=== PATIENT | female | born 1985 | race Caucasian/White ===

== ENCOUNTER 2021-10-24 23:16 | Emergency (ER) | payer BC, SELFPAY ==
[2021-10-24 23:20] VITALS: BP 144/93; PULSE 95; RESP 18; TEMP 36.4; O2SAT 95; BMI 37.6
[2021-10-25 00:19] LABS: Add Urine Culture? Yes; Add Urine Microscopic? YES; Bacteria Urine 4+ /hpf; Bilirubin Urine Neg (Negative); Blood Urine 2+ (Negative); Glucose Urine UA Norm (Normal); Ketones Urine Negative (Negative); Leukocyte Esterase Urine 2+ (Negative); Nitrate Urine Positive (Negative); Protein Urine Neg (Negative); RBC Urine 15-25 /hpf (0-2); Specific Gravity, Urine 1.015 (1.005-1.030); Urine Appearance Hazy (CLEAR); Urine Color Yellow (Yellow); Urobilinogen Urine Norm (Negative); WBC Urine >100 /hpf (0-5); pH Urine 5 (5-7)
[2021-10-25 00:25] VITALS: BP 162/102; PULSE 107; RESP 19; O2SAT 97
--- NOTE | 2021-10-25 00:49 | ED_ITS ---
HPI - Back Pain/Injury General: Chief Complaint: Back Pain/Injury Stated Complaint: Low back pain Time Seen by Provider: 10/25/21 00:41 History of Present Illness: Ms. Matta is a 36-year-old lady with significant past medical history of nephrolithiasis requiring surgical intervention who presents to the emergency department due to abdominal pain. Onset of symptoms was acute at approximately 10 PM. She denies known specific provoking factor. She has left flank pain that radiates to the groin. Intensity symptoms is moderate. Associated nausea but no vomiting. No changes in bowel movements. Feels similar to prior kidney stones. No other specific changes in health, exacerbating, or alleviating factors identified. Pertinent past history: kidney stones Onset (ago): hour(s) Severity: moderate Location: left flank Radiation: groin Exacerbating factors: none Relieving factors: none Associated symptoms: Reports nausea; Deny vomiting Review of Systems General: Reports: 10 or more systems reviewed and unremarkable except in HPI and below GI: Reports: nausea; Denies: vomiting PFSH ED PFSH: Medical History History of kidney stones Surgical History History of lithotripsy Female Reproductive History: Date of last menstrual period: 10/24/21 Physical Exam Const: COMMON NORMALS: alert GENERAL APPEARANCE: cooperative, well developed and in distress (uncomfortable appearing) HENMT: COMMON NORMALS: normocephalic and atraumatic HEAD & SCALP: normocephalic and atraumatic Eye: COMMON NORMALS: conjunctivae normal CONJUNCTIVA: Yes conjunctivae normal SCLERA: sclerae normal Neck/C-Spine: COMMON NORMALS: supple GENERAL: Yes trachea midline Resp: COMMON NORMALS: normal respiratory effort and clear to auscultation bilaterally EFFORT & INSPECTION: Yes able to speak in complete sentences AUSCULTATION: clear to auscultation bilaterally Cardio: COMMON NORMALS: regular rate and regular rhythm RATE: regular rate RHYTHM: regular rhythm GI: COMMON NORMALS: Soft to palpation PALPATION: Yes Soft to palpation and Yes Tenderness to palpation present (GI) : BLADDER/KIDNEY EXAM: Yes CVA tenderness Back/Pelvis: GENERAL BACK: Yes CVA tenderness Extremity: GENERAL: Yes normal exam except as noted and No edema Neuro: COMMON NORMALS: moves all extremities SENSORIUM/ORIENTATION: Yes alert and No Orientation impaired Psych: COMMON NORMALS: mental status grossly normal and Normal thought process present THOUGHT PROCESS: Normal thought process present Course ED course: - Patient was seen and evaluated by me at bedside - Patient placed on cardiac monitors, IV access obtained - Initial evaluation notable for exam as above - Labs personally interpreted by me -Fluids and analgesia given - Labs notable for no leukocytosis, normal hemoglobin. Metabolic panel with mild dehydration. Urinalysis nitrite positive with 2+ blood. -Given history of nephrolithiasis with requirement for surgical intervention as well as evidence of urinary tract infection CT imaging this morning. - Imaging notable for no ureteral compromise. Discussed right lower lobe nodule with patient. - Upon serial reexamination after treatment the patient was improved with treatm ent. Antibiotic dose given - Based on patient history, evaluation, and testing as interpreted the most likely cause of the patient's condition is urinary tract infection. Questionably recently passed kidney stone though no evidence of hydronephrosis or obstructing stone on CT - The results of ED evaluation were discussed with the patient including prescriptions and/or symptomatic cares (if applicable) including appropriate and responsible use, followup plan, and return precautions. The patient verbalized understanding and felt safe for discharge. - Patient discharged in satisfactory condition. Note: Click bubbles or prepopulated grant in note writing are used for assistance with data collection and billing and are inherently more limited than narrative and other text portions of this note. Please use narrative for additional clinical history and defer to narrative/free test for any case of contradictory information. If information appears in only free text or click bubble it should be considered present or absent as reported. Please contact note conventional underwriter for clarifications of clinical information or contradictory information. MDM is a brief summary, contradictory or erroneous seeming information should be clarified and full note should be reviewed. Vital Signs: Vital signs: Vital Signs Temperature 97.5 F L 10/24/21 23:20 Pulse Rate 95 10/25/21 04:20 Respiratory Rate 19 H 10/25/21 00:25 Blood Pressure 121/86 10/25/21 04:20 Pulse Oximetry 96 10/25/21 04:20 Oxygen Delivery Co thod 10/25/21 00:25 MDM - Back Pain/Injury Medical Decision Making 36-year-old lady presenting with sudden onset flank pain associated with nausea. Does have history of nephrolithiasis requiring intervention. Patient found to have urinary tract infection but no evidence of obstructing kidney stone, ? Recently passed stone given clinical history. Patient proved with treatment and satisfactory for outpatient management with treatment of UTI. Medical Records I reviewed the patient's medical records. Labs I reviewed the patient's lab results. : 10/25/21 01:15 10/25/21 01:15 Radiology Impressions Abdomen/Pelvis CT 10/25/21 00:50 IMPRESSION: 1. Right kidney upper pole, mid zone and lower pole 1 mm to 10 mm multiple calculi seen (greater than 15). The overall number and size of calculi is decreased in correlation with the prior CT. Left kidney mid zone and lower pole 1-2 mm calculi, as noted above. No hydronephrosis, ureterectasis or ureteral calculi. 2. 2 x 2 mm noncalcified right lower lobe nodule, as noted above. COMMENTS: Consistent with the [employer] [place] [employer] [employer]'s Incidental Findings Committee white paper (J Am Kaya Radiol 2018): Any incidental renal lesion less than 1 cm or classified as too small to characterize, or any incidental cystic renal lesion characterized as simple-appearing, is likely benign. No follow-up imaging is recommended for these lesions per consensus recommendations based on imaging criteria. Laboratory Results WBC 8.3 10^3/uL (4.0-10.0) 10/25/21 01:15 RBC 4.18 10^6/uL (4.1-5.3) 10/25/21 01:15 Hgb 12.6 g/dL (11.5-15.3) 10/25/21 01:15 Hct 38.2 % (37.0-47.0) 10/25/21 01:15 MCV 91.4 fl (81-99) 10/25/21 01:15 MCH 30.1 pg (28.0-34.0) 10/25/21 01:15 MCHC 33.0 g/dL (30.0-36.0) 10/25/21 01:15 RDW 13.3 % (12.1-15.1) 10/25/21 01:15 Plt Count 372 10^3/cmm (130-400) 10/25/21 01:15 MPV 10.1 fL (7.4-10.4) 10/25/21 01:15 Neut % (Auto) 74.5 % 10/25/21 01:15 Lymph % (Auto) 16.8 % 10/25/21 01:15 [place] % (Auto) 6.8 % 10/25/21 01:15 Eos % (Auto) 1.1 % 10/25/21 01:15 Baso % (Auto) 0.6 % 10/25/21 01:15 Neut # (Auto) 6.18 10^3/uL (1.8-7.7) 10/25/21 01:15 Lymph # (Auto) 1.4 10^3/uL (0.8-4.8) 10/25/21 01:15 [place] # (Auto) 0.6 10^3/uL (0.2-0.9) 10/25/21 01:15 Eos # (Auto) 0.1 10^3/uL (0.0-0.8) 10/25/21 01:15 Baso # (Auto) 0.1 10^3/uL (0.0-0.1) 10/25/21 01:15 Nucleated RBC % (auto) 0 % 10/25/21 01:15 Nucleated RBCs # 0.0 /100WBC 10/25/21 01:15 Sodium 134 mmol/L (136-145) L 10/25/21 01:15 Potassium 3.6 mmol/L (3.5-5.1) 10/25/21 01:15 Chloride 98 mmol/L (98-107) 10/25/21 01:15 Carbon Dioxide 22 mmol/L (22-29) 10/25/21 01:15 Anion Gap 17.6 (5-19) 10/25/21 01:15 BUN 15 mg/dL (6-20) 10/25/21 01:15 Creatinine 0.7 mg/dL (0.5-0.9) 10/25/21 01:15 GFR Calculation 94.2 mL/min (90-130) 10/25/21 01:15 Glucose 173 mg/dL (65-115) H 10/25/21 01:15 Calculated Osmolality 283 mOsm/kg (285-295) L 10/25/21 01:15 Calcium 9.5 mg/dL (8.5-10.5) 10/25/21 01:15 Total Bilirubin 0.3 mg/dL (0.15-1.2) 10/25/21 01:15 AST 20 U/L (0-32) 10/25/21 01:15 ALT 22 U/L (0-33) 10/25/21 01:15 Alkaline Phosphatase 96 IU/L (35-105) 10/25/21 01:15 Total Protein 7.5 g/dL (6.6-8.7) 10/25/21 01:15 Albumin 4.2 g/dL (3.5-5.2) 10/25/21 01:15 Globulin 3.3 g/dL (1.3-4.6) 10/25/21 01:15 Urine Color Yellow (Yellow) 10/24/21 23:50 Urine Appearance Hazy (CLEAR) A 10/24/21 23:50 Urine pH 5 (5-7) 10/24/21 23:50 Ur Specific [place] 1.015 (1.005-1.030) 10/24/21 23:50 Urine Protein Neg (Negative) 10/24/21 23:50 Urine Glucose (UA) Norm (Normal) 10/24/21 23:50 Urine Ketones Negative (Negative) 10/24/21 23:50 Urine Blood 2+ (Negative) H 10/24/21 23:50 Urine Nitrate Positive (Negative) H 10/24/21 23:50 Urine Bilirubin Neg (Negative) 10/24/21 23:50 Urine Urobilinogen Norm mg/dL (Negative) 10/24/21 23:50 Ur Leukocyte Esterase 2+ (Negative) H 10/24/21 23:50 Urine RBC 15-25 /hpf (0-2) H 10/24/21 23:50 Urine WBC >100 /hpf (0-5) H 10/24/21 23:50 Ur Squamous Epith Cells 5-10 /hpf (0-5) H 10/24/21 23:50 Amorphous Sediment Not Reportable 10/24/21 23:50 Urine Bacteria 4+ /hpf (NONE) H 10/24/21 23:50 Urine HCG, Qual Negative (Negative) 10/24/21 23:50 Discharge Plan Discharge Patient Disposition: Home Clinical Impression: Acute flank pain, UTI (urinary tract infection) Condition: Stable Prescriptions: New ondansetron 4 mg tablet,disintegrating 4 mg PO Q8H PRN (Reason: nausea and vomiting) Qty: 15 0RF oxycodone 5 mg capsule 5 mg PO Q4H PRN (Reason: pain) Qty: 10 0RF Flomax 0.4 mg capsule 0.4 mg PO DAILY Qty: 10 0RF Discharge Orders: Discharge ED (Routine); Ordered 10/25/21 Ordered By: Don Bernard Patient Instructions: Kidney Stones (ED), Urinary Tract Infection in Women (ED), Flank Pain (ED), Opioid Safety Activity Restrictions/Additional Instructions: Thank you for visiting the emergency department. You were seen and evaluated for abdominal pain. The exact cause of your symptoms is unclear though likely related to urinary tract infection, it is also possible that you recently passed a kidney stone. I will prescribe antibiotics in addition to pain control and nausea medication as well as Flomax which can help decrease spasms of ureter for recently passed kidney stones. Please return to the emergency department for worsening symptoms or anything else that you are concerned about a feel needs emergency department evaluation. Coding Level of Care Code ED [employer] for Tiffany Gould
--- NOTE | 2021-10-25 00:50 | CTR_ITS ---
PROCEDURE INFORMATION: Exam: CT Abdomen And Pelvis Without Contrast Exam date and time: 10/25/2021 12:58 AM Age: 36 years old Clinical indication: Abdominal pain; Prior surgery; Surgery type: Lithotripsy; Patient HX: C/O left flank pain. History of nephrolithiasis. ; Additional info: Flank pain L, HX renal stones TECHNIQUE: Imaging protocol: Computed tomography of the abdomen and pelvis without contrast. Radiation optimization: All CT scans at this facility use at least one of these dose optimization techniques: automated exposure control; mA and/or kV adjustment per patient size (includes targeted exams where dose is matched to clinical indication); or iterative reconstruction. COMPARISON: CT kidney stone [id number] 02/02/2018 9:32 PM RADIATION DOSE METRICS: Total DLP (mGy-cm): 1289.37 FINDINGS: Lungs: 2 x 2 mm noncalcified right lower lobe nodule is seen (series 3, image 26). Recommend follow-up per Fleischner society recommendations. The remaining visualized lung bases are clear. Liver: Appears unremarkable on the non-contrast CT. Gallbladder and bile ducts: No calcified stones. No ductal dilation. Pancreas: Appears unremarkable on the non-contrast CT. No ductal dilation. Spleen: Appears unremarkable on the non-contrast CT. No splenomegaly. Adrenal glands: Normal. No mass. Kidneys and ureters: Right kidney upper pole, mid zone and lower pole 1 mm to 10 mm multiple calculi are seen (greater than 15). The overall number and size of calculi is decreased in correlation with the prior CT. Right kidney mid zone 1.5 x 1.5 cm simple cyst is seen. Right kidney upper pole possible caliceal diverticulum is seen. Some regions of cortical scarring are seen in the right kidney. No right hydronephrosis, ureterectasis or ureteral calculi. Left kidney lower pole 2 x 2 mm calculus is seen. Left kidney mid zone two 1 x 1 mm calculi are seen. No left hydronephrosis, ureterectasis or ureteral calculi. Stomach and bowel: The noncontrast opacified stomach appears unremarkable. The noncontrast opacified loops of small bowel in the abdomen and pelvis appear unremarkable. The noncontrast opacified loops of colon in the abdomen and pelvis appear unremarkable. The lack of orally administered contrast material limits bowel assessment. Appendix: No evidence of appendicitis. Intraperitoneal space: No free air. No significant fluid collection. Some phleboliths are seen in the pelvis. Vasculature: No abdominal aortic aneurysm. Lymph nodes: No enlarged lymph nodes. Urinary bladder: No bladder debris. No wall thickening. Reproductive: Unremarkable as visualized. Bones/joints: No acute osseous abnormality seen. [id number] degenerative disc disease changes are seen in the lower thoracic spine region. Moderate symphysis pubis degenerative changes are seen. Soft tissues: Unremarkable. CT/CT kidney stone [id number] IMPRESSION: 1. Right kidney upper pole, mid zone and lower pole 1 mm to 10 mm multiple calculi seen (greater than 15). The overall number and size of calculi is decreased in correlation with the prior CT. Left kidney mid zone and lower pole 1-2 mm calculi, as noted above. No hydronephrosis, ureterectasis or ureteral calculi. 2. 2 x 2 mm noncalcified right lower lobe nodule, as noted above. COMMENTS: Consistent with the [place] [employer]'s Incidental Findings Committee white paper (J Am Kaya Radiol 2018): Any incidental renal lesion less than 1 cm or classified as too small to characterize, or any incidental cystic renal lesion characterized as simple-appearing, is likely benign. No follow-up imaging is recommended for these lesions per consensus recommendations based on imaging criteria.
[2021-10-25] MEDS: sodium chloride 0.9% 1,000 ML 999 ML IV (00:56)
[2021-10-25] MEDS: fentaNYL 50 mcg/mL INJ 2mL IVP (01:28)
[2021-10-25 01:37] LABS: Basophils # 0.1 10^3/uL (0.0-0.1); Basophils % 0.6 %; Eosinophils # 0.1 10^3/uL (0.0-0.8); Eosinophils % 1.1 %; Hematocrit 38.2 % (37.0-47.0); Hemoglobin 12.6 g/dL (11.5-15.3); Lymphocytes # 1.4 10^3/uL (0.8-4.8); Lymphocytes % 16.8 %; Mean Corpuscular Hemoglobin 30.1 pg (28.0-34.0); Mean Corpuscular Volume 91.4 fl (81-99); Mean Platelet Volume 10.1 fL (7.4-10.4); Monocytes # 0.6 10^3/uL (0.2-0.9); Monocytes % 6.8 %; Neutrophils # 6.18 10^3/uL (1.8-7.7); Neutrophils % 74.5 %; Nucleated Red Blood Cells % 0 %; Platelet Count 372 10^3/cmm (130-400); Red Blood Count 4.18 10^6/uL (4.1-5.3); Red Cell Distribution Width 13.3 % (12.1-15.1); White Blood Count 8.3 10^3/uL (4.0-10.0)
[2021-10-25 01:45] LABS: Alanine Aminotransferase 22 U/L (0-33); Albumin Level 4.2 g/dL (3.5-5.2); Alkaline Phosphatase 96 IU/L (35-105); Anion Gap 17.6 (5-19); Aspartate Amino Transferase 20 U/L (0-32); Blood Urea Nitrogen 15 mg/dL (6-20); Calcium 9.5 mg/dL (8.5-10.5); Carbon Dioxide 22 mmol/L (22-29); Chloride 98 mmol/L (98-107); Globulin 3.3 g/dL (1.3-4.6); Glomerular Filtration Rate 94.2 mL/min (90-130); Glucose 173 mg/dL (65-115); Osmolality Calculated 283 mOsm/kg (285-295); Potassium 3.6 mmol/L (3.5-5.1); Sodium 134 mmol/L (136-145); Total Bilirubin 0.3 mg/dL (0.15-1.2); Total Protein 7.5 g/dL (6.6-8.7)
[2021-10-25 02:00] VITALS: BP 134/79; PULSE 90; O2SAT 91
[2021-10-25 02:30] VITALS: BP 118/67; PULSE 94; O2SAT 94
[2021-10-25 04:00] VITALS: BP 121/86; PULSE 95; O2SAT 96
[2021-10-25] MEDS: cefTRIAXone 1,000 MG in sodium chloride 0.9% (plus) 50 ML 100 MG IV (04:04)
[2021-10-25 04:20] VITALS: BP 121/86; PULSE 95; O2SAT 96
== END 2021-10-25 04:22 | disposition home or self-care (01) ==
PROVIDERS: Nurse Practitioner Family; Emergency Provider Emergency Medicine
DX: N39.0 Urinary tract infection, site not specified (principal)
CPT/HCPCS: 74176; 80053; 81001; 81025; 85025; 87077; 87086; 87186; 96365; 96375; 99285; J0696; J3010; J7030

== ENCOUNTER → 2025-03-17 10:30 | Outpatient (BNVA) | payer BC, SELFPAY | PROVIDERS: PCP Family Medicine; Visit Provider Family Medicine | DX: R53.83 Other fatigue (principal); E11.65 Type 2 diabetes mellitus with hyperglycemia; I10 Essential (primary) hypertension | CPT/HCPCS: 80053; 80061; 82043; 82306; 82607; 84443; 85025 ==